=== PATIENT | male | born 1940 | race Caucasian/White ===

== ENCOUNTER → 2016-11-24 | Outpatient (CLI) | payer MEDICARE, OTHER | LOC: US 14:20 | DX: I25.10 Atherosclerotic heart disease of native coronary artery without angina pectoris (principal); I82.592 Chronic embolism and thrombosis of other specified deep vein of left lower extremity; I82.432 Acute embolism and thrombosis of left popliteal vein | CPT/HCPCS: 93971; J3430 ==

== ENCOUNTER → 2020-10-16 | Outpatient (CLI) | payer MEDICARE, OTHER ==
[~2020-10-16] MED LIST: ANORO ELLIPTA1 EACH INH; CLARITIN10 MG PO; CRESTOR40 MG PO; ECOTRIN81 MG PO; ELIQUIS 5 MG TAB5 MG PO; ISOSORBIDE MONO20 MG PO; K-DUR TAB 10 M10 MEQ PO; LASIX20 MG PO; METOPROLOL TART25 MG PO; MIRAPEX0.25 MG PO; MYSOLINE TAB 5050 MG PO; NEURONTIN 300300 MG PO; NITROSTAT0.4 MG SL; PERCOCET 10-321 EACH PO; PREDNISONE20 MG PO; PRIMIDONE50 MG PO; PRINIVIL20 MG PO; PROTONIX40 MG PO; PROVENTIL HFA6.7 GM INH; REQUIP1 MG PO; ROBAXIN500 MG PO; TESSALON PERLE100 MG PO; VIBRAMYCIN 100100 MG GT; VIBRAMYCIN 100100 MG PO; VITAMIN D35000 UNI1 PO; ZETIA 10 MG TAB10 MG PO
== END ==
LOC: KOH-I 15:18
DX: M13.871 Other specified arthritis, right ankle and foot (principal)
CPT/HCPCS: 73630

== ENCOUNTER 2020-12-18 20:34 | Observation (INO) | payer MEDICARE, OTHER ==
[~2020-12-18] VITALS: Ht 182.9 cm; Wt 105.7 kg
[2020-12-18 22:22] LABS: HEMOGLOBIN 12.1 gm/dl (14.0-17.5); RED BLOOD COUNT 3.62 M/UL (4.20-5.50); WHITE BLOOD COUNT 3.9 K/UL (4.5-11.0)
[2020-12-18 22:45] LABS: BUN/CREATININE RATIO 18 (0-10)
[2020-12-19 06:04] LABS: BUN/CREATININE RATIO 20 (0-10)
--- NOTE | 2020-12-19 17:51 | NUR ---
KEEP FOLLOW UP APPOINTMENTS. INSTRUCTED ON IMPORTANCE OF FOLLOWING DIET, TAKE ALL MEDS ORDERED. VERBALIZED UNDERDTKATELYN RENEE R.N.
== END 2020-12-19 19:39 | disposition home or self-care (01) ==
LOC: ER1 20:34 → M/S 23:17 → CDU 23:17 → M/S 12-19 04:13
PROVIDERS: Physician Assistant; ADMIT Internal Medicine
DX: R07.89 Other chest pain (principal); I25.10 Atherosclerotic heart disease of native coronary artery without angina pectoris; N17.9 Acute kidney failure, unspecified; I10 Essential (primary) hypertension; I49.5 Sick sinus syndrome; J44.9 Chronic obstructive pulmonary disease, unspecified; F17.210 Nicotine dependence, cigarettes, uncomplicated; I25.2 Old myocardial infarction; N40.0 Benign prostatic hyperplasia without lower urinary tract symptoms; Z86.718 Personal history of other venous thrombosis and embolism; Z95.5 Presence of coronary angioplasty implant and graft; Z95.1 Presence of aortocoronary bypass graft; Z95.0 Presence of cardiac pacemaker; Z85.46 Personal history of malignant neoplasm of prostate; Z85.528 Personal history of other malignant neoplasm of kidney; Z79.01 Long term (current) use of anticoagulants; Z79.82 Long term (current) use of aspirin; Z79.899 Other long term (current) drug therapy; Z20.822 Contact with and (suspected) exposure to COVID-19
CPT/HCPCS: ECHO; 36415; 71045; 78452; 80048; 80053; 82550; 82553; 83874; 84484; 85025; 93005; 93017; 93306; 99285; A9502; G0378; J2785; J7030; U0002

== ENCOUNTER → 2021-01-23 | Outpatient (CLI) | payer MEDICARE, OTHER | LOC: KOH-I 08:51 | DX: J43.8 Other emphysema (principal); R06.02 Shortness of breath; Z01.812 Encounter for preprocedural laboratory examination; Z20.822 Contact with and (suspected) exposure to COVID-19 | CPT/HCPCS: 71046; U0003 ==

== ENCOUNTER → 2021-04-15 | Outpatient (CLI) | payer MEDICARE, OTHER | LOC: HEART 5 10:28 | DX: J44.9 Chronic obstructive pulmonary disease, unspecified (principal) | CPT/HCPCS: 94060; 94729 ==

== ENCOUNTER → 2021-07-15 | Outpatient (CLI) | payer MEDICARE, OTHER | LOC: LAB 16:08 | PROVIDERS: Emergency Medicine | DX: I10 Essential (primary) hypertension (principal); E78.2 Mixed hyperlipidemia; M62.81 Muscle weakness (generalized) | CPT/HCPCS: 36415; 80053 ==

== ENCOUNTER → 2021-12-24 | Outpatient (CLI) | payer OTHER | LOC: LAB 11:38 | DX: Z79.891 Long term (current) use of opiate analgesic (principal) | CPT/HCPCS: 93005 ==